=== PATIENT | male | born 1960 | race American Indian/Alaskan Native ===

== ENCOUNTER 2016-12-31 20:30 | Emergency (ER) | payer MEDICARE ==
[2016-12-31] MEDS ORDERED: PROVENTIL IH ONE (20:41)
--- NOTE | 2017-01-01 00:07 | Emergency Department Report ---
HPI - General Chief Complaint: Adult Asthma Time Seen by Provider: 12/31/16 23:25 - HPI HPI: 56-year-old who presents today complaining of asthma exacerbation that started a few minutes prior to arrival. Positive for history of asthma. Admits to symptomatic relief post-breathing treatments given in triage. Also complaining of coughing 1 month that comes and goes. Patient will likely refill of his neb treatments. Denies fever, chills, nausea, vomiting, chest pain, shortness of breath, abdominal pain. ED Past Medical Hx - Past Medical History Previous Medical History?: Yes Hx Hypertension: Yes Hx Asthma: Yes - Surgical History Past Surgical History?: No - Social History Smoking Status: Current Every Day Smoker Substance Use Type: Alcohol, Marijuana - Medications Home Medications: Home Medications Medication Instructions Recorded Confirmed Last Taken Type ALBUTEROL Inhaler [ProAir HFA 2 puff IH QID PRN #1 inhalation 01/01/17 Unknown Rx Inhaler] Albuterol Sulfate [Albuterol 0.63% 0.63 mg IH TID PRN #30 ml 01/01/17 Unknown Rx NEBS] Promethazine /Codeine 5 ml PO Q6H PRN #100 ml 01/01/17 Unknown Rx [Phenergan/Codeine 6.25-10 mg/5 ml] predniSONE [Deltasone] 20 mg PO QDAY #5 tab 01/01/17 Unknown Rx ED Review of Systems ROS: Stated complaint: JUDY/SOB/WHEEZING Other details as noted in HPI Constitutional: denies: chills, fever, malaise Eyes: denies: eye pain ENT: denies: ear pain, throat pain, congestion Respiratory: cough. denies: shortness of breath, wheezing Cardiovascular: denies: chest pain, palpitations Endocrine: no symptoms reported Gastrointestinal: denies: abdominal pain, nausea, vomiting Neurological: denies: headache, weakness Physical Exam - Physical Exam Vital Signs: Vital Signs 12/31/16 12/31/16 12/31/16 20:37 21:21 21:36 Temperature 98.4 F Pulse Rate 90 Pulse Rate [ 96 H 98 H Bilateral Throughout] Respiratory 28 H Rate Respiratory 20 20 Rate [Bilateral Throughout] Blood Pressure 178/106 O2 Sat by Pulse 99 Oximetry Physical Exam: GENERAL: The patient is well-developed and well-nourished. Patient is in NAD. HEAD: Normocephalic. Atraumatic. EYES: PERRL. EARS: External auditory canals and tympanic membranes clear; hearing grossly intact. NOSE: Normal nasal mucosa with no nasal discharge. THROAT: No erythema, swelling or exudates. NECK: Supple, nontender, without lymphadenopathy. CHEST/LUNGS: Clear to auscultation throughout. No wheezing noted. (PE post medication) HEART/CARDIOVASCULAR: Regular rate and rhythm. No murmurs, rubs or gallops. ABDOMEN: Abdomen is soft, nontender. Bowel sounds normoactive. No guarding or rebound tenderness. EXTREMITIES: Peripheral pulses intact. Capillary refill less than 2 seconds. NEURO: Alert and oriented x 3. Normal gait. ED Course Vital Signs 12/31/16 12/31/16 12/31/16 20:37 21:21 21:36 Temperature 98.4 F Pulse Rate 90 Pulse Rate [ 96 H 98 H Bilateral Throughout] Respiratory 28 H Rate Respiratory 20 20 Rate [Bilateral Throughout] Blood Pressure 178/106 O2 Sat by Pulse 99 Oximetry ED Medical Decision Making - Lab Data Vital Signs 12/31/16 12/31/16 12/31/16 20:37 21:21 21:36 Temperature 98.4 F Pulse Rate 90 Pulse Rate [ 96 H 98 H Bilateral Throughout] Respiratory 28 H Rate Respiratory 20 20 Rate [Bilateral Throughout] Blood Pressure 178/106 Blood Pressure [Left] O2 Sat by Pulse 99 Oximetry 01/01/17 00:07 Temperature 97.9 F Pulse Rate 81 Pulse Rate [ Bilateral Throughout] Respiratory 18 Rate Respiratory Rate [Bilateral Throughout] Blood Pressure Blood Pressure 176/94 [Left] O2 Sat by Pulse 98 Oximetry Patient has history of hypertension and is currently taking losartan 100 mg with his last dose being yesterday. Patient states that he has the medication at home and will take it once he gets home. Denies being medicated at this time. - Medical Decision Making 56-year-old male presents today with an asthma exacerbation. Patient reported symptomatic relief post-breathing treatment. Patient is in no acute distress at this time. He will be discharged home and is encouraged to follow up with a primary care provider. He will be sent home on albuterol neb treatment, albuterol inhaler, prednisone and promethazine/codeine and is encouraged to return to the emergency room for any worsening symptoms. As per the [employer] clinical policy on asymptomatic hypertension: Initiating treatment for asymptomatic hypertension in the ED is not necessary when patients have follow-up; (2) Rapidly lowering blood pressure in asymptomatic patients in the ED is unnecessary and may be harmful in some patients; (3) When ED treatment for asymptomatic hypertension is initiated, blood pressure management should attempt to gradually lower blood pressure and should not be expected to be normalized during the initial ED visit. Emphasized the importance of follow up with primary care physician and explained to patient that uncontrolled hypertension can lead to long-term complications of hypertension/elevated blood pressure including stroke, heart attack, disability, , paralysis, permanent loss of quality of life. Critical care attestation.: If time is entered above; I have spent that time in minutes in the direct care of this critically ill patient, excluding procedure time. ED Disposition Clinical Impression: Asthma exacerbation, Cough Disposition: DISCHARGED TO HOME OR SELFCARE Is pt being admited?: No Does the pt Need Aspirin: No Condition: Stable Instructions: Asthma (ED), Acute Cough (ED) Additional Instructions: Follow-up with primary care provider. Return to the emergency department if symptoms worsen. Prescriptions: ALBUTEROL Inhaler [ProAir HFA Inhaler] 2 puff IH QID PRN #1 inhalation PRN Reason: Shortness Of Breath Albuterol Sulfate [Albuterol 0.63% NEBS] 0.63 mg IH TID PRN #30 ml PRN Reason: Wheezing predniSONE [Deltasone] 20 mg PO QDAY #5 tab Promethazine /Codeine [Phenergan/Codeine 6.25-10 mg/5 ml] 5 ml PO Q6H PRN #100 ml PRN Reason: cough Referrals: PRIMARY CARE, [Primary Care Provider] - 3-5 Days [facility] [Outside] - 3-5 Days Forms: Work/School Release Form(ED), Accompanied Note Time of Disposition: 00:07
[2017-01-01 00:08] VITALS: BP 176/94
== END 2017-01-01 00:15 | disposition home or self-care (01) ==
LOC: ED 20:30
DX: J45.901 Unspecified asthma with (acute) exacerbation (principal); I10 Essential (primary) hypertension; F17.200 Nicotine dependence, unspecified, uncomplicated; F12.10 Cannabis abuse, uncomplicated
CPT/HCPCS: 94640; 99282

== ENCOUNTER 2019-11-19 10:12 | Emergency (ER) | payer MEDICARE ==
[2019-11-19] MEDS ORDERED: IPRATROPIUM/ALBUTEROL SULFATE 3 ML AMPUL.NEB IH ONE (10:59)
[2019-11-19] MEDS ORDERED: hydrALAZINE 20 MG/1 ML INJ IV ONE ×2 (10:59→14:39)
[2019-11-19] MEDS ORDERED: methylPREDNISolone Sod Succinate 125 MG/2 ML INJ IV ONE (10:59)
--- NOTE | 2019-11-19 11:02 | Emergency Department Report ---
HPI - General Chief Complaint: Dyspnea/Respdistress Time Seen by Provider: 11/19/19 10:53 - HPI HPI: 59-year-old -[place]inames[place] male presents to the emergency department with a complaint of a few weeks of shortness of breath that worsens with exertion. He denies any fever, chest pain, wheezing, coughing, back pain, lower extremity swelling. He has a history of asthma, GERD, hypertension and high cholesterol. He has been without his albuterol inhaler for many weeks. He also presents with some elevated blood pressure and admits to not taking his blood pressure medication for the past 2 days. No primary care physician. No recent travel or sick contacts at home. Denies any tobacco use but will smoke marijuana about every 2 to 3 days. ED Past Medical Hx - Past Medical History Previous Medical History?: Yes Hx Hypertension: Yes Hx Asthma: Yes - Social History Smoking Status: Current Some Day Smoker Substance Use Type: None - Medications Home Medications: Home Medications Medication Instructions Recorded Confirmed Last Taken Type Albuterol Sulfate [Albuterol 0.63% 0.63 mg IH TID PRN #30 ml 01/01/17 Unknown Rx NEBS] Promethazine /Codeine 5 ml PO Q6H PRN #100 ml 01/01/17 Unknown Rx [Phenergan/Codeine 6.25-10 mg/5 ml] Albuterol INH(or & Nicu Only) 2 puff IH QID PRN #1 inhalation 11/19/19 Unknown Rx [ProAir HFA Inhaler] predniSONE [Deltasone] 20 mg PO QDAY #5 tab 11/19/19 Unknown Rx ED Review of Systems ROS: Stated complaint: SOB, ASTHMA Other details as noted in HPI Comment: All other systems reviewed and negative Constitutional: denies: chills, fever Eyes: denies: eye pain, vision change ENT: denies: ear pain, throat pain Respiratory: shortness of breath, SOB with exertion. denies: cough, wheezing Cardiovascular: denies: chest pain, edema Gastrointestinal: denies: abdominal pain, vomiting Genitourinary: denies: dysuria, discharge Musculoskeletal: denies: back pain, arthralgia Skin: denies: rash, lesions Neurological: denies: headache, weakness Physical Exam - Physical Exam Vital Signs: Vital Signs 11/19/19 10:42 Temperature 98.1 F Pulse Rate 89 Respiratory 18 Rate Blood Pressure 177/105 O2 Sat by Pulse 95 Oximetry Physical Exam: GENERAL: The patient is well-developed well-nourished. HENT: Normocephalic. Atraumatic. Patient has moist mucous membranes. EYES: Extraocular motions are intact. NECK: Supple. Trachea is midline. CHEST/LUNGS: Mild expiratory wheezing. Mild tachypnea but no accessory muscle use. No cough heard during examination. There is no respiratory distress noted. HEART/CARDIOVASCULAR: Regular. There is no tachycardia. There is no murmur. ABDOMEN: Abdomen is soft, nontender. Patient has normal bowel sounds. There is no abdominal distention. SKIN: Skin is warm and dry. NEURO: The patient is awake, alert, and oriented. The patient is cooperative. The patient has no focal neurologic deficits. Normal speech. MUSCULOSKELETAL: There is no tenderness or deformity. There is no evidence of acute injury. ED Course Vital Signs 11/19/19 10:42 Temperature 98.1 F Pulse Rate 89 Respiratory 18 Rate Blood Pressure 177/105 O2 Sat by Pulse 95 Oximetry ED Medical Decision Making - Lab Data Result diagrams: 11/19/19 11:11 11/19/19 11:11 - EKG Data -: EKG Interpreted by Tn EKG shows normal: sinus rhythm, axis, intervals, QRS complexes (Q waves to the septal leads), ST-T waves Rate: normal - EKG Data When compared to previous EKG there are: previous EKG unavailable Interpretation: other (Sinus rhythm, rate of 80 bpm, normal axis, normal intervals, Q waves to the septal leads) - Radiology Data Radiology results: image reviewed interpreted by me: Chest x-ray does not show any acute process. There are no pleural effusions, obvious pneumonia and there is no pneumothorax. - Medical Decision Making This patient presents to the emergency department with some chronic shortness of breath that mostly occurs with exertion. He has no chest pain, lower extremity swelling, cough, fever. On examination he has very mild expiratory wheezing and some mild tachypnea without any accessory muscle use. Patient also presents with elevated blood pressure with admission to noncompliance over the past 2 days on his losartan. On top of that, the patient also only takes half of his prescribed dose. Patient was given a dose of blood pressure medication, Solu- Medrol, and was given a DuoNeb breathing treatment. An EKG was done that does not show any signs of ST elevation DE or ischemia. Chest x-ray does not show any pneumonia, pleural effusions, pneumothorax, focal consolidation, or any other acute process. His labs have been unremarkable including negative troponins x2, low BNP, and a negative d-dimer level. His blood pressure comes has come down to a much more reasonable level. Patient appears to be safe for discharge home at this time. He has been given a prescription for a course of steroids, and albuterol inhaler. He has been given multiple referrals for primary care and a referral for a professional bass fisherman. We discussed dietary and lifestyle changes to make including low salt and caffeine, keeping a blood pressure log, and taking his blood pressure medications as prescribed. The patient will return to the emergency department with any worsening of his symptoms or any acute distress. He understands and agrees to the plan. - Differential Diagnosis Pneumonia, asthma, bronchitis, PE, CHF Critical Care Time: No Critical care attestation.: If time is entered above; I have spent that time in minutes in the direct care of this critically ill patient, excluding procedure time. ED Disposition Clinical Impression: Shortness of breath Hypertension Qualifiers: Hypertension type: essential hypertension Qualified Code(s): I10 - Essential (primary) hypertension Asthma Qualifiers: Asthma severity: unspecified severity Asthma persistence: unspecified Asthma complication type: with acute exacerbation Qualified Code(s): J45.901 - Unspecified asthma with (acute) exacerbation Disposition: TO HOME OR SELFCARE Is pt being admited?: No Condition: Stable Instructions: Asthma (ED), Dyspnea (ED), Hypertension (ED) Additional Instructions: Please follow-up with a primary care physician in the next few days. I have given you a referral for multiple local primary care physicians and a clinic. I have also given you a referral for a local professional bass fisherman, Dr. Jolley. Return to the emergency department with any worsening of your symptoms or any acute distress. Take your blood pressure medications. Try and stay away from foods that are high in salt and caffeinated products. Keep a blood pressure log. Prescriptions: predniSONE [Deltasone] 20 mg PO QDAY #5 tab Albuterol INH(or & Nicu Only) [ProAir HFA Inhaler] 2 puff IH QID PRN #1 inhalation PRN Reason: Shortness Of Breath Referrals: PRIMARY CARE, [Primary Care Provider] - 2-3 Days WILMA KHALIL MD [Staff Physician] - 2-3 Days KATHERIN CHURCHILL MD [Staff Physician] - 2-3 Days [facility] [Outside] - 2-3 Days NAVYA JOLLEY MD [Staff Physician] - 2-3 Days Time of Disposition: 16:31
--- NOTE | 2019-11-19 11:23 | XRay Report ---
CHEST 1 VIEW INDICATION / CLINICAL INFORMATION: SOB. COMPARISON: None FINDINGS: SUPPORT DEVICES: None. HEART / MEDIASTINUM: No significant abnormality. LUNGS / PLEURA: No significant pulmonary or pleural abnormality. No pneumothorax. ADDITIONAL FINDINGS: No significant additional findings. IMPRESSION: 1. No acute pulmonary or pleural abnormality Signer Name: Tim Villanueva MD FACR Signed: 11/19/2019 11:18 AM Workstation Name: [id number]
[2019-11-19 11:27] LABS: Basophils % (Auto) 0.7 % (0.0-1.8); Eosinophils # (Auto) 0.1 K/mm3 (0.0-0.4); Eosinophils % (Auto) 1.7 % (0.0-4.3); Hematocrit 46.2 % (35.5-45.6); Hemoglobin 15.5 gm/dl (11.8-15.2); Lymphocytes # (Auto) 2.1 K/mm3 (1.2-5.4); Lymphocytes % (Auto) 35.9 % (13.4-35.0); Mean Corpuscular HGB Conc 34 % (32-34); Mean Corpuscular Volume 91 fl (84-94); Monocytes # (Auto) 0.6 K/mm3 (0.0-0.8); Monocytes % (Auto) 10.8 % (0.0-7.3); Platelet Count 245 K/mm3 (140-440); Red Blood Count 5.08 M/mm3 (3.65-5.03); Red Cell Distribution Width 14.3 % (13.2-15.2)
[2019-11-19 11:36] LABS: INR 0.96 (0.87-1.13)
[2019-11-19 12:03] LABS: BUN/Creatinine Ratio 16; Blood Urea Nitrogen 13 mg/dL (9-20); Calcium 9.9 mg/dL (8.4-10.2); Hemolysis Index 2
[2019-11-19] MEDS ORDERED: ALBUTEROL 2.5 MG/3 ML NEBU IH ONE (12:16)
[2019-11-19] MEDS ORDERED: LOSARTAN 50 MG TAB PO ONE (14:39)
[2019-11-19 16:49] VITALS: BP 157/86
== END 2019-11-19 16:49 | disposition home or self-care (01) ==
LOC: ED 10:12
DX: J45.909 Unspecified asthma, uncomplicated (principal); I10 Essential (primary) hypertension; R06.02 Shortness of breath; F17.200 Nicotine dependence, unspecified, uncomplicated; Z79.899 Other long term (current) drug therapy
CPT/HCPCS: 36415; 71045; 80048; 83880; 84484; 85025; 85379; 85610; 93005; 93010; 94640; 96374; 96375; 99284; J0360; J2930; 94644